=== PATIENT | female | born 1970 | race Caucasian/White ===

== ENCOUNTER 2024-01-12 23:14 | Emergency (ER) | payer MEDICAID, SELFPAY ==
[2024-01-12 23:18] VITALS: BP 133/73; PULSE 79; RESP 18; TEMP 36.7; O2SAT 96; BMI 14.6
--- NOTE | 2024-01-12 23:30 | ED_ITS ---
Documented by User: HOLLY Scott 01/13/24 01:28 HPI - Weakness 2 General: Chief complaint: Weakness Stated complaint: Lower abd pain,Fever Time Seen by Provider: 01/12/24 23:20 History of Present Illness: Patient comes in today for complaints of generalized weakness with lower abdominal pain and fever. Patient states that she has been ill for the last 10 days. Patient was around her grandson that had influenza. Patient believes she became ill with him. Patient reports that she has had problems holding down fluids over the last 10 days. Patient denies any chronic medical problems. Patient is a tobacco user. Associated symptoms: Reports nausea and vomiting Review of Systems 2 General: Reports: 10 or more systems reviewed and unremarkable except in HPI and below GI: Reports: abdominal pain, nausea and vomiting Physical Exam 2 Const: COMMON NORMALS: alert HENMT: COMMON NORMALS: normocephalic HEAD & SCALP: normocephalic Neck/C-Spine: COMMON NORMALS: full ROM Resp: COMMON NORMALS: normal respiratory effort AUSCULTATION: wheezes Cardio: COMMON NORMALS: regular rate and regular rhythm RATE: regular rate RHYTHM: regular rhythm GI: COMMON NORMALS: Soft to palpation PALPATION: Yes Soft to palpation and Yes Tenderness to palpation present (GI) (Generalized) : COMMON NORMALS: Yes no CVA tenderness BLADDER/KIDNEY EXAM: Yes no CVA tenderness Back/Pelvis: COMMON NORMALS: no CVA tenderness Extremity: COMMON NORMALS: full ROM Neuro: SENSORIUM/ORIENTATION: Yes alert Skin: COMMON NORMALS: turgor normal GENERAL SKIN EXAM: turgor normal Course 2 Vital Signs: Vital signs: Vital Signs Temperature 98.0 F 01/12/24 23:18 Pulse Rate 94 01/13/24 02:06 Respiratory Rate 16 01/13/24 02:06 Blood Pressure 125/65 01/13/24 02:06 Pulse Oximetry 90 01/13/24 02:06 Oxygen Delivery Me thod Room Air 01/12/24 23:18 MDM - Weakness Medical Decision Making 53-year-old female comes in today for complaints of illness x 10 days. Patient reports nausea vomiting and abdominal pain. Patient appears unwell but not toxic. Patient denies any chronic medical problems. On exam respirations are even lungs have some wheezing throughout. Patient is a chronic tobacco user. No edema is noted in extremities. Vital signs are normal. Differential diagnosis includes dehydration, bowel obstruction, UTI, gastroenteritis, colitis, pneumonia. CBC showed some mild anemia with a hemoglobin 11.2. CMP noted a low sodium of 133, potassium 2.8 with the remainder being unremarkable. Urinalysis was unremarkable. Chest x-ray noted irregular opacity in the left lung base. CT of the abdomen and pelvis noted patchy consolidation in the lung bases but no other significant abnormalities. Reviewed exam with patient and daughter with recommendations for treatment for pneumonia with Levaquin. Patient was also given some Zofran to help with nausea and vomiting. Patient reported understanding of care plan need for follow-up or return to the ER. Lab Data 01/12/24 23:31 01/12/24: Radiology Impressions Abdomen/Pelvis CT 01/12/24: IMPRESSION: 1. Patchy consolidations in the lung bases. 2. No bowel obstruction or inflammatory process associated with the bowel. 3. No free air or significant free fluid in the abdomen or pelvis. 4. No evidence of appendicitis. Chest X-Ray 01/12/24:41 IMPRESSION: Irregular opacities in the left lung base. Laboratory Results WBC 10.21 10^3/uL (3.29-11.43) 01/12/24 23: RBC 3.58 10^6/uL (3.85-5.65) L 01/12/24 23: Hgb 11.20 g/dL (11.27-16.99) L 01/12/24: Hct 32.7 % (36-47) L 01/12/24: MCV 91.3 fl (85-98) 01/12/24 23: MCH 31.3 pg (27-33) 01/12/24 23: MCHC 34.3 g/dL (30-55) 01/12/24 23: RDW 11.9 % (12.1-15.1) L 01/12/24: Plt Count 344 10^3/cmm (157-399) 01/12/24 23: MPV 9.2 fL (7.4-10.4) 01/12/24 23: Neut % (Auto) 65.1 % 01/12/24 23: Lymph % (Auto) 23.5 % 01/12/24 23:31 [place] % (Auto) 10.2 % 01/12/24 23:31 Eos % (Auto) 0.1 % 01/12/24 23:31 Baso % (Auto) 0.3 % 01/12/24 23:31 Neut # (Auto) 6.65 10^3/uL (1.8-7.7) 01/12/24 23:31 Lymph # (Auto) 2.4 10^3/uL (0.8-4.8) 01/12/24 23:31 [place] # (Auto) 1.0 10^3/uL (0.2-0.9) H 01/12/24 23:31 Eos # (Auto) 0.0 10^3/uL (0.0-0.8) 01/12/24 23:31 Baso # (Auto) 0.0 10^3/uL (0.0-0.1) 01/12/24 23:31 Nucleated RBC % (auto) 0 % 01/12/24 23:31 Nucleated RBCs # 0.0 /100WBC 01/12/24 23:31 Sodium 133 mmol/L (136-145) L 01/12/24 23:31 Potassium 2.8 mmol/L (3.5-5.1) L* 01/12/24 23:31 Chloride 93 mmol/L (98-107) L 01/12/24 23:31 Carbon Dioxide 26 mmol/L (22-29) 01/12/24 23:31 Anion Gap 16.8 (5-19) 01/12/24 23:31 BUN 7 mg/dL (6-20) 01/12/24 23:31 Creatinine 0.7 mg/dL (0.5-0.9) 01/12/24 23:31 GFR Calculation 87.5 mL/min (90-130) L 01/12/24 23:31 Glucose 101 mg/dL (65-115) 01/12/24 23:31 Calculated Osmolality 274 mOsm/kg (285-295) L 01/12/24 23:31 Calcium 8.7 mg/dL (8.5-10.5) 01/12/24 23:31 Total Bilirubin 0.8 mg/dL (0.15-1.2) 01/12/24 23:31 AST 14 U/L (0-32) 01/12/24 23:31 ALT 11 U/L (0-33) 01/12/24 23:31 Alkaline Phosphatase 78 U/L (35-105) 01/12/24 23:31 Total Protein 7.4 g/dL (6.6-8.7) 01/12/24 23:31 Albumin 3.8 g/dL (3.5-5.2) 01/12/24 23:31 Globulin 3.6 g/dL (1.3-4.6) 01/12/24 23:31 Urine Color Yellow (Yellow) 01/12/24 23:42 Urine Appearance Clear (CLEAR) 01/12/24 23:42 Urine pH 7 (5-7) 01/12/24 23:42 Ur Specific [place] 1.005 (1.005-1.030) 01/12/24 23:42 Urine Protein Trace (Negative) 01/12/24 23:42 Urine Glucose (UA) Norm (Normal) 01/12/24 23:42 Urine Ketones 1+ (Negative) H 01/12/24 23:42 Urine Blood 2+ (Negative) H 01/12/24 23:42 Urine Nitrate Negative (Negative) 01/12/24 23:42 Urine Bilirubin Neg (Negative) 01/12/24 23:42 Urine Urobilinogen 4 mg/dL (Negative) H 01/12/24 23:42 Ur Leukocyte Esterase Negative (Negative) 01/12/24 23:42 Urine RBC 0-4 /hpf (0-2) H 01/12/24 23:42 Urine WBC 5-10 /hpf (0-5) H 01/12/24 23:42 Ur Squamous Epith Cells 5-10 /hpf (0-5) H 01/12/24 23:42 Amorphous Sediment Not Reportable 01/12/24 23:42 Urine Bacteria 1+ /hpf (NONE) H 01/12/24 23:42 All radiology interpretation(s) finalized by discharge Discharge Plan Discharge Patient Disposition: Home Clinical Impression: Dehydration, Hypokalemia Pneumonia Qualifiers: Pneumonia type: due to unspecified organism Laterality: left Lung location: l ower lobe of lung Qualified Code(s): J18.9 - Pneumonia, unspecified organism Condition: Stable Prescriptions: New ondansetron 4 mg tablet,disintegrating 4 mg PO Q8H PRN (Reason: nausea and vomiting) Qty: 10 0RF levofloxacin 500 mg tablet 500 mg PO DAILY 6 Days Qty: 6 0RF Discharge Orders: Discharge ED (Routine); Ordered 01/13/24 Ordered By: Thomas Cabrera Discharge Diet: Usual diet Discharge Activity: Increase activity as tolerated Patient Instructions: Pneumonia (ED) Activity Restrictions/Additional Instructions: Drink plenty of fluids. Antibiotics as directed. Follow-up with primary care for further instructions. Return to ED for new concerns or worsening symptoms such as severe pain, increasing shortness of breath. Coding Level of Care Code ED Assistant Toddler Teacher for Chg Fwd Documented by User: Jose Juan Cantu DO 01/13/24 03:32 HPI - Weakness 2 General: Chief complaint: Weakness Stated complaint: Lower abd pain,Fever Time Seen by Provider: 01/12/24 23:20 Course 2 Vital Signs: Vital signs: Vital Signs Temperature 98.0 F 01/12/24 23:18 Pulse Rate 94 01/13/24 02:06 Respiratory Rate 16 01/13/24 02:06 Blood Pressure 125/65 01/13/24 02:06 Pulse Oximetry 90 01/13/24 02:06 Oxygen Delivery Me thod Room Air 01/12/24 23:18 MDM - Weakness Medical Decision Making 53-year-old female comes in today for complaints of illness x 10 days. Patient reports nausea vomiting and abdominal pain. Patient appears unwell but not toxic. Patient denies any chronic medical problems. On exam respirations are even lungs have some wheezing throughout. Patient is a chronic tobacco user. No edema is noted in extremities. Vital signs are normal. Differential diagnosis includes dehydration, bowel obstruction, UTI, gastroenteritis, colitis, pneumonia. CBC showed some mild anemia with a hemoglobin 11.2. CMP noted a low sodium of 133, potassium 2.8 with the remainder being unremarkable. Urinalysis was unremarkable. Chest x-ray noted irregular opacity in the left lung base. CT of the abdomen and pelvis noted patchy consolidation in the lung bases but no other significant abnormalities. Reviewed exam with patient and daughter with recommendations for treatment for pneumonia with Levaquin. Patient was also given some Zofran to help with nausea and vomiting. Patient reported understanding of care plan need for follow-up or return to the ER. This patient was originally seen by HOLLY Dias.? I agree with his history, evaluation, and treatment. Lab Data 01/12/24 23:31 01/12/24 23:31 Radiology Impressions Abdomen/Pelvis CT 01/12/24 23:41 IMPRESSION: 1. Patchy consolidations in the lung bases. 2. No bowel obstruction or inflammatory process associated with the bowel. 3. No free air or significant free fluid in the abdomen or pelvis. 4. No evidence of appendicitis. Chest X-Ray 01/12/24 23:41 IMPRESSION: Irregular opacities in the left lung base. Laboratory Results WBC 10.21 10^3/uL (3.29-11.43) 01/12/24 23:31 RBC 3.58 10^6/uL (3.85-5.65) L 01/12/24 23:31 Hgb 11.20 g/dL (11.27-16.99) L 01/12/24 23:31 Hct 32.7 % (36-47) L 01/12/24 23:31 MCV 91.3 fl (85-98) 01/12/24 23:31 MCH 31.3 pg (27-33) 01/12/24 23:31 MCHC 34.3 g/dL (30-55) 01/12/24 23:31 RDW 11.9 % (12.1-15.1) L 01/12/24 23:31 Plt Count 344 10^3/cmm (157-399) 01/12/24 23:31 MPV 9.2 fL (7.4-10.4) 01/12/24 23:31 Neut % (Auto) 65.1 % 01/12/24 23:31 Lymph % (Auto) 23.5 % 01/12/24 23:31 [place] % (Auto) 10.2 % 01/12/24 23:31 Eos % (Auto) 0.1 % 01/12/24 23:31 Baso % (Auto) 0.3 % 01/12/24 23:31 Neut # (Auto) 6.65 10^3/uL (1.8-7.7) 01/12/24 23:31 Lymph # (Auto) 2.4 10^3/uL (0.8-4.8) 01/12/24 23:31 [place] # (Auto) 1.0 10^3/uL (0.2-0.9) H 01/12/24 23:31 Eos # (Auto) 0.0 10^3/uL (0.0-0.8) 01/12/24 23:31 Baso # (Auto) 0.0 10^3/uL (0.0-0.1) 01/12/24 23:31 Nucleated RBC % (auto) 0 % 01/12/24 23:31 Nucleated RBCs # 0.0 /100WBC 01/12/24 23:31 Sodium 133 mmol/L (136-145) L 01/12/24 23:31 Potassium 2.8 mmol/L (3.5-5.1) L* 01/12/24 23:31 Chloride 93 mmol/L (98-107) L 01/12/24 23:31 Carbon Dioxide 26 mmol/L (22-29) 01/12/24 23:31 Anion Gap 16.8 (5-19) 01/12/24 23:31 BUN 7 mg/dL (6-20) 01/12/24 23:31 Creatinine 0.7 mg/dL (0.5-0.9) 01/12/24 23:31 GFR Calculation 87.5 mL/min (90-130) L 01/12/24 23:31 Glucose 101 mg/dL (65-115) 01/12/24 23:31 Calculated Osmolality 274 mOsm/kg (285-295) L 01/12/24 23:31 Calcium 8.7 mg/dL (8.5-10.5) 01/12/24 23:31 Total Bilirubin 0.8 mg/dL (0.15-1.2) 01/12/24 23:31 AST 14 U/L (0-32) 01/12/24 23:31 ALT 11 U/L (0-33) 01/12/24 23:31 Alkaline Phosphatase 78 U/L (35-105) 01/12/24 23:31 Total Protein 7.4 g/dL (6.6-8.7) 01/12/24 23:31 Albumin 3.8 g/dL (3.5-5.2) 01/12/24 23:31 Globulin 3.6 g/dL (1.3-4.6) 01/12/24 23:31 Urine Color Yellow (Yellow) 01/12/24 23:42 Urine Appearance Clear (CLEAR) 01/12/24 23:42 Urine pH 7 (5-7) 01/12/24 23:42 Ur Specific [place] 1.005 (1.005-1.030) 01/12/24 23:42 Urine Protein Trace (Negative) 01/12/24 23:42 Urine Glucose (UA) Norm (Normal) 01/12/24 23:42 Urine Ketones 1+ (Negative) H 01/12/24 23:42 Urine Blood 2+ (Negative) H 01/12/24 23:42 Urine Nitrate Negative (Negative) 01/12/24 23:42 Urine Bilirubin Neg (Negative) 01/12/24 23:42 Urine Urobilinogen 4 mg/dL (Negative) H 01/12/24 23:42 Ur Leukocyte Esterase Negative (Negative) 01/12/24 23:42 Urine RBC 0-4 /hpf (0-2) H 01/12/24 23:42 Urine WBC 5-10 /hpf (0-5) H 01/12/24 23:42 Ur Squamous Epith Cells 5-10 /hpf (0-5) H 01/12/24 23:42 Amorphous Sediment Not Reportable 01/12/24 23:42 Urine Bacteria 1+ /hpf (NONE) H 01/12/24 23:42 Discharge Plan Discharge Patient Disposition: Home Clinical Impression: Dehydration, Hypokalemia Pneumonia Qualifiers: Pneumonia type: due to unspecified organism Laterality: left Lung location: l ower lobe of lung Qualified Code(s): J18.9 - Pneumonia, unspecified organism Condition: Stable Prescriptions: New ondansetron 4 mg tablet,disintegrating 4 mg PO Q8H PRN (Reason: nausea and vomiting) Qty: 10 0RF levofloxacin 500 mg tablet 500 mg PO DAILY 6 Days Qty: 6 0RF Discharge Orders: Discharge ED (Routine); Ordered 01/13/24 Ordered By: Thomas Cabrera Discharge Diet: Usual diet Discharge Activity: Increase activity as tolerated Patient Instructions: Pneumonia (ED) Activity Restrictions/Additional Instructions: Drink plenty of fluids. Antibiotics as directed. Follow-up with primary care for further instructions. Return to ED for new concerns or worsening symptoms such as severe pain, increasing shortness of breath. Coding Level of Care Code ED Assistant Toddler Teacher for Dulce Maria Baker
[2024-01-12 23:35] LABS: Basophils % 0.3 %; Eosinophils % 0.1 %; Hematocrit 32.7 % (36-47); Lymphocytes # 2.4 10^3/uL (0.8-4.8); Lymphocytes % 23.5 %; Mean Corpuscular HGB Conc 34.3 g/dL (30-55); Mean Corpuscular Hemoglobin 31.3 pg (27-33); Mean Corpuscular Volume 91.3 fl (85-98); Mean Platelet Volume 9.2 fL (7.4-10.4); Monocytes % 10.2 %; Neutrophils # 6.65 10^3/uL (1.8-7.7); Neutrophils % 65.1 %; Nucleated Red Blood Cells % 0 %; Platelet Count 344 10^3/cmm (157-399); Red Blood Count 3.58 10^6/uL (3.85-5.65); Red Cell Distribution Width 11.9 % (12.1-15.1); White Blood Count 10.21 10^3/uL (3.29-11.43)
--- NOTE | 2024-01-12 23:41 | XRR_ITS ---
PROCEDURE INFORMATION: Exam: XR Chest Exam date and time: 01/12/2024 11:55 PM Age: 53 years old Clinical indication: Cough and shortness of breath; Patient HX: Cough with SOB TECHNIQUE: Imaging protocol: Radiologic exam of the chest. Views: 1 view. COMPARISON: No relevant prior studies available. FINDINGS: Lungs: Irregular opacities in the left lung base. Pleural spaces: Unremarkable. No pleural effusion. No pneumothorax. Heart/Mediastinum: Unremarkable. No cardiomegaly. Bones/joints: Unremarkable. XR/XR chest 1V portable [id number] IMPRESSION: Irregular opacities in the left lung base.
--- NOTE | 2024-01-12 23:41 | CTR_ITS ---
PROCEDURE INFORMATION: Exam: CT Abdomen And Pelvis With Contrast Exam date and time: 01/13/2024 12:23 AM Age: 53 years old Clinical indication: Nausea and vomiting and other: Weight loss; Abdominal pain; Localized; Patient HX: C/O bilateral flank pain with n/v and weight loss. ; Additional info: Abd pain, wt. Loss TECHNIQUE: Imaging protocol: Computed tomography of the abdomen and pelvis with contrast. Radiation optimization: All CT scans at this facility use at least one of these dose optimization techniques: automated exposure control; mA and/or kV adjustment per patient size (includes targeted exams where dose is matched to clinical indication); or iterative reconstruction. Contrast material: OMNI 350; Contrast volume: 100 ml; Contrast route: INTRAVENOUS (IV); COMPARISON: CR (CHEST, ) 01/12/2024 11:55 PM RADIATION DOSE METRICS: Total DLP (mGy-cm): 274.74 FINDINGS: Lungs: Patchy consolidations in the lung bases. Liver: Normal. No mass. Gallbladder and bile ducts: Normal. No calcified stones. No ductal dilation. Pancreas: Normal. No ductal dilation. Spleen: Normal. No splenomegaly. Adrenal glands: Normal. No mass. Kidneys and ureters: Normal. No hydronephrosis. Stomach and bowel: Unremarkable. No obstruction. No mucosal thickening. Appendix: No evidence of appendicitis. Intraperitoneal space: Unremarkable. No free air. No significant fluid collection. Vasculature: Unremarkable. No abdominal aortic aneurysm. Lymph nodes: Unremarkable. No enlarged lymph nodes. Urinary bladder: Unremarkable as visualized. Reproductive: Unremarkable as visualized. Bones/joints: Unremarkable. No acute fracture. Soft tissues: Unremarkable. CT/CT abdomen pelvis w con* [id number] IMPRESSION: 1. Patchy consolidations in the lung bases. 2. No bowel obstruction or inflammatory process associated with the bowel. 3. No free air or significant free fluid in the abdomen or pelvis. 4. No evidence of appendicitis.
[2024-01-12 23:45] VITALS: BP 134/71; PULSE 84; RESP 18; O2SAT 95
[2024-01-12] MEDS: sodium chloride 0.9% 1,000 ML 999 ML IV (23:47)
[2024-01-12 23:52] LABS: Alanine Aminotransferase 11 U/L (0-33); Albumin Level 3.8 g/dL (3.5-5.2); Alkaline Phosphatase 78 U/L (35-105); Anion Gap 16.8 (5-19); Aspartate Amino Transferase 14 U/L (0-32); Blood Urea Nitrogen 7 mg/dL (6-20); Calcium 8.7 mg/dL (8.5-10.5); Carbon Dioxide 26 mmol/L (22-29); Chloride 93 mmol/L (98-107); Creatinine Clr Calc Pharmacy 53.2425; Globulin 3.6 g/dL (1.3-4.6); Glomerular Filtration Rate 87.5 mL/min (90-130); Glucose 101 mg/dL (65-115); Osmolality Calculated 274 mOsm/kg (285-295); Sodium 133 mmol/L (136-145); Total Bilirubin 0.8 mg/dL (0.15-1.2); Total Protein 7.4 g/dL (6.6-8.7)
[2024-01-12 23:56] LABS: Potassium 2.8 mmol/L (3.5-5.1)
[2024-01-13] VITALS: BP 128/67; PULSE 90; RESP 18; O2SAT 98
[2024-01-13 00:05] LABS: Add Urine Microscopic? YES; Bilirubin Urine Neg (Negative); Blood Urine 2+ (Negative); Glucose Urine UA Norm (Normal); Ketones Urine 1+ (Negative); Leukocyte Esterase Urine Negative (Negative); Nitrate Urine Negative (Negative); Protein Urine Trace (Negative); Specific Gravity, Urine 1.005 (1.005-1.030); Urine Appearance Clear (CLEAR); Urine Color Yellow (Yellow); Urobilinogen Urine 4 mg/dL (Negative); pH Urine 7 (5-7)
[2024-01-13 00:06] LABS: Bacteria Urine 1+ /hpf; RBC Urine 0-4 /hpf (0-2)
[2024-01-13] MEDS: ondansetron 2 mg/ML SDV 2 mL 4 MG IVP (00:18)
[2024-01-13] MEDS: iohexol 350 mg/mL 500 mL Btl (per mL) IV (00:24)
[2024-01-13 00:45] VITALS: BP 135/66; PULSE 88; RESP 16; O2SAT 93
[2024-01-13] MEDS: potassium chloride oral liq 20 mEq/15 mL UDC 40 MEQ PO (01:31)
[2024-01-13] MEDS: dexamethasone 10 mg/mL INJ IVP (01:32)
[2024-01-13] MEDS: levofloxacin-dextrose 5 % 500 MG/100 ML PREMIX 100 MG IV (01:33)
[2024-01-13 02:06] VITALS: BP 125/65; PULSE 94; RESP 16; O2SAT 90
== END 2024-01-13 02:42 | disposition home or self-care (01) ==
PROVIDERS: Emergency Provider Nurse Practitioner Family
DX: J18.9 Pneumonia, unspecified organism (principal); E86.0 Dehydration; E87.6 Hypokalemia
CPT/HCPCS: 71045; 74177; 80053; 81001; 81003; 85025; 96361; 96365; 96375; 99285; J1100; J1956; J2405; J7030; Q9967

== ENCOUNTER → 2024-01-30 09:56 | Outpatient (BNVA) | payer MEDICAID, SELFPAY | PROVIDERS: PCP Family Medicine; Visit Provider Family Medicine | DX: E87.6 Hypokalemia (principal) | CPT/HCPCS: 80048 ==

== ENCOUNTER → 2024-02-20 13:20 | Outpatient (BNVA) | payer MEDICAID, SELFPAY | PROVIDERS: PCP Family Medicine; Visit Provider Family Medicine | DX: E87.6 Hypokalemia (principal) | CPT/HCPCS: 80048 ==

== ENCOUNTER → 2024-04-17 11:46 | Outpatient (BNVA) | payer MEDICAID, SELFPAY | PROVIDERS: PCP Family Medicine; Visit Provider Family Medicine | DX: J18.9 Pneumonia, unspecified organism (principal); E87.6 Hypokalemia | CPT/HCPCS: 80053; 81000; 87426 ==

== ENCOUNTER 2024-04-22 10:12 | Emergency (ER) | payer MEDICAID, SELFPAY ==
--- NOTE | 2024-04-22 10:20 | W.ED.FALL ---
HPI - Fall General: Chief Complaint: General Medical Stated Complaint: fall--right side rib pain Time Seen by Provider: 04/22/24 10:20 Source: patient Mode of arrival: ambulatory Limitations: no limitations History of Present Illness: This patient made aware to the emergency room today at the urging of family members. She apparently was lifting something out of her pickup truck [place] days ago and her foot slipped on the bumper and she fell against the tailgate striking her right chest. She did not suffer any other injury at the time. She states that she did not think a whole lot about it but has continued to engage in her activities of daily living. She states that she raised her heart arm above her head up approximately day or so after the incident and felt a pop. She states she continues to have pain with deep breaths raising her hand above her head and twisting and turning. She denies any fevers or chills. She has a mild smoker's cough as she is a tobacco user but denies any change in her usual breathing pattern. She denies other injury to include head injury other extremity injury etc. MD complaint: fall Fall from: standing Fall witnessed: no Place fall occurred: street Loss of consciousness: None Location of injury: chest Associated symptoms-after fall: Denies abdominal pain, lightheadedness or neck pain Related Data Previous Rx's Medication Instructions Recorded ondansetron 4 mg disintegrating 4 mg PO Q8H PRN nausea and 01/13/24 tablet vomiting #10 tabs potassium chloride 20 mEq 20 meq PO DAILY #14 tabs 01/16/24 tablet,extended release dicyclomine 10 mg capsule 10 mg PO BID #60 caps 04/17/24 Allergies Allergy/AdvReac Type Severity Reaction Status Date / Time No Known Allergies Allergy Verified 01/16/24 13:33 Review of Systems Const: Denies: fever(s) or chills ENMT: Denies: odynophagia Card: Denies: palpitations, lightheadedness, syncope or pre-syncope Resp: Denies: dyspnea, productive cough, wheezing, stridor or hemoptysis GI: Denies: abdominal pain, nausea, vomiting or diarrhea : Denies: flank pain, difficulty voiding or dysuria Musc: Denies: neck pain, back pain, extremity pain or extremity swelling Neuro: Denies: numbness in extremities or weakness in extremities PFS ED [facility]: Family History Mother Stroke, Onset Age: 50 Social History Smoking and tobacco/nicotine status: current every day tobacco/nicotine user cigarettes Packs smoked per day: 1 Years cigarettes smoked: 38 Second hand smoke exposure: No Alcohol intake: never Substance/Drug Use: never Adopted: No Caregiver/support person: No Lives independently: Yes service: No Current occupational status: unemployed Do you think of yourself as: Straight/Heterosexual Current gender identity: Female Female Reproductive History: Spontaneous abortions: No Physical Exam Narrative: EXAM NARRATIVE: Thin woman who answers questions appropriately and appears to be in no acute distress. Const: COMMON NORMALS: no acute distress, patient oriented x3 and alert GENERAL APPEARANCE: cooperative and comfortable NUTRITIONAL APPEARANCE: thin HENMT: COMMON NORMALS: normocephalic and moist oral mucous membranes HEAD & SCALP: normocephalic Eye: COMMON NORMALS: Equal, round and reactive pupils present PUPIL: Yes Equal, round and reactive pupils present Neck/C-Spine: CERVICAL SPINE: Yes cervical ROM normal, No Cervical spine tenderness, No step off deformity, No Paracervical muscle tenderness, No Paracervical spasm and No Trapezius muscle tenderness Chest: COMMONS NORMALS: normal inspection of the chest OTHER: No palpable subcutaneous emphysema, ecchymosis, crepitance noted. She is tender along the anterior lateral and anterior lax axillary regions of her right chest particularly in the ribs 6 through 9. Abduction of the right arm at the shoulder exacerbates her symptoms. Twisting and turning of her trunk slightly exacerbates her symptoms. Resp: COMMON NORMALS: normal respiratory effort, No retractions, No use of accessory muscles, clear to auscultation bilaterally and percussion normal AUSCULTATION: clear to auscultation bilaterally PERCUSSION: percussion normal Cardio: COMMON NORMALS: regular rate, regular rhythm, No murmurs present (Cardio) and Peripheral pulses 2+ throughout RATE: regular rate RHYTHM: regular rhythm PERIPHERAL PULSES: Peripheral pulses 2+ throughout : COMMON NORMALS: Yes no CVA tenderness BLADDER/KIDNEY EXAM: Yes no CVA tenderness Back/Pelvis: COMMON NORMALS: no CVA tenderness, thoracic and lumbar spine normal to inspection, no thoracic nor lumbar tenderness and thoraco-lumbar ROM normal Extremity: COMMON NORMALS: normal to inspection, full ROM, capillary refill normal and no calf tenderness Neuro: COMMON NORMALS: patient oriented x3, moves all extremities, no focal motor deficits and no sensory deficits noted SENSORIUM/ORIENTATION: Yes alert Skin: COMMON NORMALS: no rashes or lesions noted GENERAL SKIN EXAM: no rashes or lesions noted Course Vital Signs: Vital signs: Vital Signs Temperature 98.1 F 04/22/24 10:21 Pulse Rate 79 04/22/24 10:21 Respiratory Rate 18 04/22/24 10:21 Blood Pressure 174/102 04/22/24 10:21 Pulse Oximetry 100 04/22/24 10:21 Oxygen Delivery Me thod Room Air 04/22/24 10:21 MDM - Fall Medical Decision Making The patient presented as per the history of present illness. She suffered trauma to the right chest. Differential based upon her history and current clinical examination included rib fracture, possible pneumothorax, contusion of chest wall etc. Clinical examination was reassuring with reproducible symptoms without any clinical evidence to suggest more serious pathology. 2 view chest x-ray was obtained which revealed no evidence of obvious displaced rib fracture, pneumothorax or other clearly concerning pathology. Discussed expected course and return precautions with the patient. She voiced understanding. Stable for discharge. Lab Data Radiology Impressions Chest X-Ray 04/22/24 10:25 Impression: The lungs are hyperinflated with chronic change. No new consolidation is seen Bilateral nipple shadows are suspected. Repeat study with nipple markers for confirmation is recommended. All radiology interpretation(s) finalized by discharge Discharge Plan Discharge Patient Disposition: Home Clinical Impression: Traumatic injury of chest wall Condition: Stable Prescriptions: No Action potassium chloride 20 mEq tablet extended release 20 meq PO DAILY Qty: 14 0RF dicyclomine 10 mg capsule 10 mg PO BID Qty: 60 3RF ondansetron 4 mg tablet,disintegrating 4 mg PO Q8H PRN (Reason: nausea and vomiting) Qty: 10 0RF Discharge Orders: Discharge ED (Routine); Ordered 04/22/24 Ordered By: Eldon Yousif Referrals: Perry Whiting DO [Primary Care Provider] - Discharge Diet: Usual diet Discharge Activity: Increase activity as tolerated Patient Instructions: Opioid Safety, Pain Management Activity Restrictions/Additional Instructions: As discussed while you are in emergency department you did not have any evidence of a broken rib, collapsed lung etc. today. You have suffered a injury to the soft tissues bones muscles etc. of your chest wall without any broken bones. Due to nature of this kind of injury in many cases it can take 3 to 4 weeks for the pain completely resolved. If your pain does not resolve in a month, you develop increasing pain or difficulty breathing, coughing up blood fevers chills or other concerns return to the emergency department for reevaluation. You may use [id number] ibuprofen or acetaminophen for any soreness. Coding Level of Care Code ED Transport Manager for Dulce Maria Baker
[2024-04-22 10:21] VITALS: BP 174/102; PULSE 79; RESP 18; TEMP 36.7; O2SAT 100; BMI 15.7
--- NOTE | 2024-04-22 10:25 | XR_ITS ---
WS: [id number] Examination: XR chest 2V* [id number] Reason for Exam: fall and trauma to right chest Date: April 22, 2024 Comparison: January 12, 2024 Findings: The heart is not enlarged on this rotated film. The lungs are markedly hyperinflated with chronic change. There is no congestion or edema. There is n o pleural effusion. Nipple shadows are suspected bilaterally There is scoliosis with curvature to the right XR/XR chest 2V* [id number] Impression: The lungs are hyperinflated with chronic change. No new consolidation is seen Bilateral nipple shadows are suspected. Repeat study with nipple markers for co nfirmation is recommended.
== END 2024-04-22 11:41 | disposition home or self-care (01) ==
PROVIDERS: Emergency Provider Emergency Medicine; PCP Family Medicine
DX: S29.9XXA Unspecified injury of thorax, initial encounter (principal); F17.210 Nicotine dependence, cigarettes, uncomplicated; X50.0XXA Overexertion from strenuous movement or load, initial encounter
CPT/HCPCS: 71046; 99283

== ENCOUNTER → 2024-07-13 09:20 | Outpatient (BNVA) | payer MEDICAID, SELFPAY | PROVIDERS: PCP Family Medicine; Visit Provider Family Medicine | DX: E87.6 Hypokalemia (principal) | CPT/HCPCS: 80053 ==